=== PATIENT | male | born 1985 | race Caucasian/White ===

== ENCOUNTER 2023-07-01 18:42 | Emergency (ER) | payer BC, SELFPAY ==
[2023-07-01 18:48] VITALS: BP 132/70
[2023-07-01] MEDS: ADACEL 0.5 ML IM (20:56)
--- NOTE | 2023-07-01 21:00 | ED.SKININJ ---
HPI-Injury
General
Chief Complaint: Skin Surface Trauma
Source: patient
Exam Limitations: none
Time Seen by Provider: 07/01/23 20:40
Travel History
Have you had any contact with someone who has COVID-19?: No
Do you have any symptoms of coronavirus? Fever > 100 degrees, chills, cough, shortness of breath, sore throat, loss of taste or smell, muscle aches, or headache?: No
History of Present Illness-Injury
Initial Injury comments:
37-year-old male [id number] presents. With laceration to base of left middle finger. He was using a butter knife to separate 2 frozen meat patties. Last tetanus unknown. He denies numbness or tingling or loss of function. No other
complaints
Past History
Past History
ED Past Medical History: None
ED Past Surgical History: None
Social History
Tobacco: Non-smoker
Phy Exam
Physical Exam
Physical Exam:
General: Well-appearing male no acute distress
Skin: 1.5 cm laceration to the proximal radial and volar aspect base of left long finger without tendon or vascular involvement
Neurologic: Good sensation left long finger
Vascular: Brisk capillary refill left long finger
Musculoskeletal exam: Full range of motion left long finger
Course
Orders/Labs/Results
Orders:
Orders
07/01/23 20:52
Tetanus/Diphth/Acelpertussis [Adacel] 0.5 ml IM .ONCE ONE
Vital Signs
Initial and Last Documented VS:
Initial Vital Signs
Temp Pulse Resp BP Pulse Ox
97.8 F 56 18 132/70 100
07/01/23 18:48 07/01/23 18:48 07/01/23 18:48 07/01/23 18:48 07/01/23 18:48
Last Documented Vital Signs
Temp Pulse Resp BP Pulse Ox
97.8 F 56 18 132/70 100
07/01/23 18:48 07/01/23 18:48 07/01/23 18:48 07/01/23 18:48 07/01/23 18:48
MDM/Problems Addressed
Differential Diagnosis Includes:
The wound was copiously irrigated with saline anesthetized in a local fashion using 1% lidocaine. The wound was then closed in a running fashion using 5-0 Prolene sutures a total #4 sutures were required. Dressing was applied tetanus vaccine was
updated.
*Critical Care Note
Total Time (30-74mins, 75-104mins- exclusive of procedures): Not Applicable
ED Attending Note
-
Portions of this chart may have been created with voice recognition software.� Occasional wrong word or��sound alike� substitutions may have occurred due to the inherent limitations of voice recognition software.
Discharge Plan
Departure
Patient Disposition: Home (Routine Discharge)
Date of Disposition: 07/01/23
Time of Disposition: 21:03
Patient with high blood pressure during this ER visit?: No
Discharge Problem:
Laceration
Instructions: Laceration Repair With Stitches (DC)
Referrals:
NONE,* [Family Provider] -
Activity Restrictions/Additional Instructions:
Keep clean. Change dressing daily. You may use Tylenol or ibuprofen for pain. Have sutures removed in 10 to 14 days
Interventions
Interventions:
*Risk Screen - Suicide Last Done: 07/01/23 18:48
*General Assessment Last Done: 07/01/23 20:45
*Neglect/Abuse Screening Last Done: 07/01/23 18:48
ED-Skin Assessment Last Done: 07/01/23 19:35
== END 2023-07-01 21:08 | disposition home or self-care (01) ==
LOC: EMR 18:42
PROVIDERS: EMERGENCY PHYSICIAN Emergency Medicine
DX: S61.213A Laceration without foreign body of left middle finger without damage to nail, initial encounter (principal); W26.0XXA Contact with knife, initial encounter; Y93.G1 Activity, food preparation and clean up
CPT/HCPCS: 99282; 12001; 90471; 90715